=== PATIENT | male | born 1940 | race Caucasian/White ===

== ENCOUNTER 2021-05-20 16:05 | Inpatient (IN) | payer MEDICARE, OTHER ==
[~2021-05-20] VITALS: Ht 177.8 cm; Wt 85.0 kg
--- NOTE | 2021-05-20 16:16 | ED GI ---
General Chief Complaint: Abdominal/GI Problems Stated Complaint: COLON BLOOD LOSS Source of Information: Patient, Caregiver Exam Limitations: No Limitations History of Present Illness Date Seen by Provider: May 20, 2021 Time Seen by Provider: 16:07 Initial Comments 80yoM with PMH of HTN, HLD, and glaucoma coming in due to dark stools for 1 week and now dark red stools x3 episodes today. He has had something similar happen 7 years ago when he had a colonoscopy and they were not exactly sure what the cause was but he did have some polyps at that time. Denies any history of liver disease and does not drink alcohol. Takes a baby aspirin daily and occasional ibuprofen as far as NSAIDs. Does not take any blood thinners. Other than the blood in his stools he has not been symptomatic including no lightheadedness, syncope, chest pain, shortness of breath, abdominal pain, nausea, vomiting, weakness, numbness, or any other concerns. Allergies and Home Medications Allergies Coded Allergies: No Known Drug Allergies (Unverified , 05/20/21) Patient Home Medication List Home Medication List Reviewed: Yes Review of Systems Review of Systems Constitutional: No chills, No fever EENTM: No Blurred Vision Respiratory: Denies Cough, Denies Shortness of Air Cardiovascular: Denies Chest Pain, Denies Lightheadedness, Denies Palpitations, Denies Syncope Gastrointestinal: Denies Abdominal Pain, Denies Nausea; Rectal Bleeding; Denies Vomiting Genitourinary: No Symptoms Reported Musculoskeletal: no symptoms reported Skin: no symptoms reported Psychiatric/Neurological: No Symptoms Reported Endocrine: No Symptoms Reported Hematologic/Lymphatic: No Symptoms Reported All Other Systems Reviewed Negative Unless Noted: Yes Past [id number]-Wrynzd Hx Patient Social History Tobacco Use?: No Substance use?: No Alcohol Use?: No Past Medical History Surgeries: Yes (hernia surgery and colonscopy) Physical Exam Vital Signs Vital Signs - First Documented 05/20/21 16:10 Temp 35.4 Pulse 80 Resp 18 B/P (MAP) 201/82 (121) Pulse Ox 98 O2 Delivery Room Air Capillary Refill : Height/Weight/BMI Height: '" Weight: lbs. oz. kg; BMI Method: General Appearance: WD/WN, no apparent distress HEENT: PERRL/EOMI, normal ENT inspection, pharynx normal Neck: non-tender, full range of motion, supple, normal inspection Respiratory: chest non-tender, lungs clear, normal breath sounds, no respiratory distress, no accessory muscle use Cardiovascular: regular rate, rhythm, no edema, no murmur Gastrointestinal: normal bowel sounds, non tender; No distended, No guarding, No rebound Rectal: hemorrhoids, other (Bloody stool) Extremities: normal range of motion, non-tender, normal inspection, no pedal edema, no calf tenderness, normal capillary refill Back: normal inspection, no CVA tenderness, no vertebral tenderness Neurologic/Psychiatric: no motor/sensory deficits, alert, normal mood/affect Skin: normal color, warm/dry Lymphatic: no adenopathy Progress/Results/Core Measures Results/Orders Lab Results Laboratory Tests Test 05/20/21 16:15 Range/Units White Blood Count 12.1 H 4.3-11.0 10^3/uL Red Blood Count 4.41 4.30-5.52 10^6/uL Hemoglobin 13.6 13.3-17.7 g/dL Hematocrit 40 40-54 % Mean Corpuscular Volume 91 80-99 fL Mean Corpuscular Hemoglobin 31 25-34 pg Mean Corpuscular Hemoglobin Concent 34 32-36 g/dL Red Cell Distribution Width 12.6 10.0-14.5 % Platelet Count 285 130-400 10^3/uL Mean Platelet Volume 10.9 9.0-12.2 fL Immature Granulocyte % (Auto) 1 % Neutrophils (%) (Auto) 73 42-75 % Lymphocytes (%) (Auto) 18 12-44 % Monocytes (%) (Auto) 7 0-12 % Eosinophils (%) (Auto) 1 0-10 % Basophils (%) (Auto) 1 0-10 % Neutrophils # (Auto) 8.9 H 1.8-7.8 X 10^3 Lymphocytes # (Auto) 2.1 1.0-4.0 X 10^3 Monocytes # (Auto) 0.8 0.0-1.0 X 10^3 Eosinophils # (Auto) 0.1 0.0-0.3 10^3/uL Basophils # (Auto) 0.1 0.0-0.1 10^3/uL Immature Granulocyte # (Auto) 0.1 0.0-0.1 10^3/uL Prothrombin Time 13.7 12.2-14.7 SEC INR Comment 1.0 0.8-1.4 Activated Partial Thromboplast Time 31 24-35 SEC My Orders Orders - ANJALI ALVAREZ MD Cbc With Automated Diff (05/20/21 16:24) Comprehensive Metabolic Panel (05/20/21 16:24) Protime With Inr (05/20/21 16:24) Partial Thromboplastin Time (05/20/21 16:24) Type And Screen (05/20/21 16:24) Ed Iv/Invasive Line Start (05/20/21 16:24) Pantoprazole Injection (Protonix Injecti (05/20/21 16:30) Medications Given in ED Current Medications Medications Dose Ordered Sig/Peterson Route Start Time Stop Time Status Last Admin Dose Admin Pantoprazole 40 mg ONCE ONCE IV 05/20/21 16:30 05/20/21 16:31 DC 05/20/21 16:32 40 MG Vital Signs/I&O 05/20/21 16:10 Temp 35.4 Pulse 80 Resp 18 B/P (MAP) 201/82 (121) Pulse Ox 98 O2 Delivery Room Air Progress Progress Note : Progress Note 80-year-old male with above history coming in due to concerns of a GI bleed. ABCs were intact and vitals are stable on presentation. He is actually hypertensive on initial vitals. Physical exam with bright red blood on rectal exam with hemorrhoid present but it is not the source of his bleeding. Initial hemoglobin 13.6. An IV was placed and he was given Protonix. No evidence of liver disease so held off on giving ceftriaxone. Higher suspicion that this is a lower GI bleed. I contacted Dr. FELTON who will be in consult with the patient and will see him for potential scope. I also contacted Dr. Grady who will be admitting the patient and she prefers under inpatient status to the cardiac stepdown unit. He will be made n.p.o. with maintenance fluids going. He is full code per the patient. Departure Impression Primary Impression: GI bleed Qualified Codes: K92.2 - Gastrointestinal hemorrhage, unspecified Disposition: 30 STILL A PATIENT Condition: Stable Admissions Decision to Admit Reason: Admit from ER (General) Decision to Admit/Date: May 20, 2021 Time/Decision to Admit Time: 16:45 Departure-Patient Inst. Referrals: ALEX CAICEDO MD (PCP/Family) Primary Care Physician ANJALI ALVAREZ MD May 20, 2021 16:16
[2021-05-20] MEDS ORDERED: PANTOPRAZOLE 40 MG (PROTONIX) VIAL IV ONE (16:30)
[2021-05-20 16:40] LABS: HEMATOCRIT 40 % (40-54); HEMOGLOBIN 13.6 g/dL (13.3-17.7); MEAN CORPUSCULAR HEMOGLOBIN 31 pg (25-34); MEAN CORPUSCULAR HGB CONC 34 g/dL (32-36); MEAN CORPUSCULAR VOLUME 91 fL (80-99); PLATELET COUNT 285 10^3/uL (130-400); WHITE BLOOD COUNT 12.1 10^3/uL (4.3-11.0)
[2021-05-20 16:41] LABS: BASOPHILS # (AUTO) 0.1 10^3/uL (0.0-0.1); BASOPHILS % (AUTO) 1 % (0-10); EOSINOPHILS # (AUTO) 0.1 10^3/uL (0.0-0.3); EOSINOPHILS % (AUTO) 1 % (0-10); LYMPHOCYTES # (AUTO) 2.1 X 10^3 (1.0-4.0); LYMPHOCYTES % (AUTO) 18 % (12-44); MEAN PLATELET VOLUME 10.9 fL (9.0-12.2); MONOCYTES # (AUTO) 0.8 X 10^3 (0.0-1.0); MONOCYTES % (AUTO) 7 % (0-12); NEUTROPHILS # (AUTO) 8.9 X 10^3 (1.8-7.8); NEUTROPHILS % (AUTO) 73 % (42-75)
[2021-05-20 16:44] LABS: PROTHROMBIN TIME PATIENT 13.7 SEC (12.2-14.7)
[2021-05-20 17:04] LABS: CARBON DIOXIDE 27 MMOL/L (21-32); CHLORIDE 99 MMOL/L (98-107); POTASSIUM 4.6 MMOL/L (3.6-5.0); SODIUM 136 MMOL/L (135-145)
[2021-05-20 17:05] LABS: ALANINE AMINOTRANSFERASE 41 U/L (0-55); ALBUMIN 4.7 GM/DL (3.2-4.5); ALKALINE PHOSPHATASE 104 U/L (40-136); BILIRUBIN,TOTAL 0.4 MG/DL (0.1-1.0); BUN/CREATININE RATIO 18; CALCIUM 9.6 MG/DL (8.5-10.1); CREATININE SERUM 1.18 MG/DL (0.60-1.30); GFR ESTIMATED 59; GLUCOSE 306 MG/DL (70-105)
[2021-05-20] MEDS ORDERED: CATHETER FLUSH 10 ML SYR IV PRN (20:00)
[2021-05-20] MEDS: D5 NS 1000 ML IV SOLUTION 1,000 ML IV SCH (20:07)
--- NOTE | 2021-05-20 20:35 | Tele-ICU Progress Note ---
Subjective Date Seen by a Provider: May 20, 2021 Time Seen by a Provider: 20:33 Subjective/Events-last exam GI bleed; stable hemodynamics./ ppi/ trend hb Sepsis Event Evaluation Height, Weight, BMI Height: '" Weight: lbs. oz. kg; 27.00 BMI Method: Exam Exam Patient acknowledged, consented, and participated in this virtual visit which was conducted using real time audio/video Vital Signs Date Time Temp Pulse Resp B/P (MAP) Pulse Ox O2 Delivery O2 Flow Rate FiO2 05/20/21 18:55 66 16 178/64 Room Air 05/20/21 16:10 35.4 80 18 201/82 (121) 98 Room Air Height & Weight Height: '" Weight: lbs. oz. kg; 27.00 BMI Method: General Appearance: No Apparent Distress Capillary Refill: Less Than 3 Seconds Gastrointestinal: normal bowel sounds, non tender; No distended, No guarding, No rebound Results Lab Laboratory Tests 05/20/21 16:15 Assessment/Plan Assessment/Plan GI bleed stable hb ppi gi ANTONIO Patton MD May 20, 2021 20:35
[2021-05-20 21:10] LABS: BASOPHILS # (AUTO) 0.1 10^3/uL (0.0-0.1); BASOPHILS % (AUTO) 1 % (0-10); EOSINOPHILS % (AUTO) 0 % (0-10); HEMATOCRIT 38 % (40-54); HEMOGLOBIN 12.8 g/dL (13.3-17.7); LYMPHOCYTES # (AUTO) 1.4 10^3/uL (1.0-4.0); LYMPHOCYTES % (AUTO) 11 % (12-44); MEAN CORPUSCULAR HEMOGLOBIN 31 pg (25-34); MEAN CORPUSCULAR HGB CONC 34 g/dL (32-36); MEAN CORPUSCULAR VOLUME 91 fL (80-99); MEAN PLATELET VOLUME 10.7 fL (9.0-12.2); MONOCYTES # (AUTO) 0.9 10^3/uL (0.0-1.0); MONOCYTES % (AUTO) 7 % (0-12); NEUTROPHILS # (AUTO) 10.2 10^3/uL (1.8-7.8); NEUTROPHILS % (AUTO) 81 % (42-75); PLATELET COUNT 239 10^3/uL (130-400); WHITE BLOOD COUNT 12.7 10^3/uL (4.3-11.0)
--- NOTE | 2021-05-20 22:19 | CONSULTATION REPORT ---
DATE OF SERVICE: ATTENDING PRIMARY CARE PHYSICIAN: Dr. Ang Rodríguez. ADMITTING PHYSICIAN: Dr. Fermin. HISTORY OF PRESENT ILLNESS: The patient is an 80-year-old male with history of hypertension and hyperlipidemia. He presented to [facility] with a 1-week history of dark red stools. This was initially mild; however, on admission, he states that he had three larger episodes. He reports that he had a similar occurrence approximately 7 years ago and underwent a colonoscopy and is not exactly sure what the results yielded; however, did remember having a few polyps, which were biopsied and found to be benign. He does take aspirin 81 mg daily. He does not report any classic symptoms of peptic ulcer disease or gastroesophageal reflux disease; however, he states that some foods do cause some mild reflux. He does not report any known family history of colon cancer. PAST MEDICAL HISTORY: Hypertension, hyperlipidemia, glaucoma. PAST SURGICAL HISTORY: Hernia repair. ALLERGIES: No known drug allergies. MEDICATIONS: Aspirin 81 mg daily. SOCIAL HISTORY: Negative smoke, negative alcohol. FAMILY HISTORY: Noncontributory. VITAL SIGNS: Temperature 35.4, blood pressure 139/85, pulse 70, respirations 20, pulse ox 96% on room air. REVIEW OF SYSTEMS: Well-nourished male currently in no acute distress. He is not experiencing any shortness of breath or difficulty breathing. No chest pain, palpitations, diaphoresis. No nausea, vomiting with mild reflux. He has been experiencing a 1-week history of dark maroon-colored stools. He does not report any abdominal pain. No fever, chills, no recent inadvertent weight loss. All other review of systems negative. PHYSICAL EXAMINATION: CHEST: Clear. Good breath sounds bilaterally. HEART: Regular, no murmurs. EXTREMITIES: No lower extremity edema, negative Homans sign. HEENT: No scleral icterus. NECK: No cervical lymphadenopathy. ABDOMEN: Soft, nontender, nondistended. No hernias. SKIN: Warm, dry. LABORATORY DATA: WBC 12.1, hemoglobin 13.5, hematocrit 40, platelets 285. BUN 21, creatinine 1.18. ASSESSMENT AND PLAN: An 80-year-old male with gastrointestinal bleeding encompassing dark maroon stools. This may indicate an upper GI source; however, also the possibility of a lower gastrointestinal source. Due to his symptomatology and unknown findings on previous colonoscopy, we will initially proceed with resuscitation as necessary and continued monitoring for continued gastrointestinal bleeding. On this admission, we will also likely schedule an EGD and colonoscopy. Job ID: [id number] DocumentID: [id number] Dictated Date: 05/20/2021 21:12:53 Microcomputer Support Specialist Date: 05/20/2021 22:19:08 Dictated By: HALEY FETLON MD
[2021-05-21 01:48] VITALS: BP 201/82
[2021-05-21] MEDS ORDERED: RT-ALBUTEROL SULF 2.5 MG/3 ML PRE-MIX VIAL INH PRN (02:00)
[2021-05-21 02:41] LABS: BASOPHILS # (AUTO) 0.1 10^3/uL (0.0-0.1); BASOPHILS % (AUTO) 1 % (0-10); EOSINOPHILS % (AUTO) 0 % (0-10); HEMATOCRIT 33 % (40-54); HEMOGLOBIN 11.5 g/dL (13.3-17.7); LYMPHOCYTES # (AUTO) 1.5 10^3/uL (1.0-4.0); LYMPHOCYTES % (AUTO) 12 % (12-44); MEAN CORPUSCULAR HEMOGLOBIN 31 pg (25-34); MEAN CORPUSCULAR HGB CONC 35 g/dL (32-36); MEAN CORPUSCULAR VOLUME 90 fL (80-99); MONOCYTES # (AUTO) 0.8 10^3/uL (0.0-1.0); MONOCYTES % (AUTO) 6 % (0-12); NEUTROPHILS # (AUTO) 10.3 10^3/uL (1.8-7.8); NEUTROPHILS % (AUTO) 81 % (42-75); PLATELET COUNT 226 10^3/uL (130-400); WHITE BLOOD COUNT 12.8 10^3/uL (4.3-11.0)
[2021-05-21 02:51] LABS: ALBUMIN 3.6 GM/DL (3.2-4.5); POTASSIUM 4.5 MMOL/L (3.6-5.0)
[2021-05-21 02:54] LABS: TOTAL PROTEIN 6.4 GM/DL (6.4-8.2)
[2021-05-21 02:55] LABS: BILIRUBIN,TOTAL 0.7 MG/DL (0.1-1.0)
[2021-05-21 02:57] LABS: CREATININE SERUM 1.17 MG/DL (0.60-1.30)
[2021-05-21] MEDS: PANTOPRAZOLE 40 MG (PROTONIX) VIAL IV SCH (08:11)
[2021-05-21 08:29] LABS: BASOPHILS # (AUTO) 0.1 10^3/uL (0.0-0.1); BASOPHILS % (AUTO) 0 % (0-10); EOSINOPHILS % (AUTO) 0 % (0-10); HEMATOCRIT 31 % (40-54); HEMOGLOBIN 10.8 g/dL (13.3-17.7); LYMPHOCYTES # (AUTO) 1.4 10^3/uL (1.0-4.0); LYMPHOCYTES % (AUTO) 9 % (12-44); MEAN CORPUSCULAR HEMOGLOBIN 31 pg (25-34); MEAN CORPUSCULAR HGB CONC 34 g/dL (32-36); MEAN CORPUSCULAR VOLUME 91 fL (80-99); MEAN PLATELET VOLUME 10.8 fL (9.0-12.2); MONOCYTES # (AUTO) 0.9 10^3/uL (0.0-1.0); MONOCYTES % (AUTO) 6 % (0-12); NEUTROPHILS # (AUTO) 12.3 10^3/uL (1.8-7.8); NEUTROPHILS % (AUTO) 84 % (42-75); PLATELET COUNT 232 10^3/uL (130-400); WHITE BLOOD COUNT 14.7 10^3/uL (4.3-11.0)
[2021-05-21 08:50] LABS: BAND NEUTROPHILS 0 %; BASOPHILS % (MANUAL) 0 %; EOSINOPHILS % (MANUAL) 0 %; LYMPHOCYTES % (MANUAL) 9 %; MONOCYTES % (MANUAL) 5 %; NEUTROPHILS % (MANUAL) 86 %; RBC MORPH NORMAL
[2021-05-21] MEDS: D5 NS 1000 ML IV SOLUTION 1,000 ML IV SCH (09:29)
[2021-05-21] MEDS ORDERED: TIMO5DRO5 OS (11:44)
[2021-05-21] MEDS ORDERED: BIMA2.5D4 OS (11:44)
[2021-05-21] MEDS ORDERED: IBUP1TAB14 PO (11:44)
[2021-05-21] MEDS ORDERED: SIMV10TA26 PO (11:44)
[2021-05-21] MEDS ORDERED: CINN500C2 PO (11:44)
[2021-05-21] MEDS ORDERED: ASPI-1238 PO (11:44)
[2021-05-21] MEDS ORDERED: AMLO-250 PO (11:44)
[2021-05-21] MEDS ORDERED: LISI20TA26 PO (11:44)
[2021-05-21] MEDS ORDERED: ALPR0.5T7 PO (11:44)
[2021-05-21] MEDS ORDERED: FISH1CAP15 PO (11:44)
[2021-05-21] MEDS ORDERED: GABA-486 PO (11:44)
--- NOTE | 2021-05-21 12:55 | History & Physical ---
HPI History of Present Illness: 80 yo M that presented to ER with bright red stools x 2 days. Patient states that he had dark stools about 1 week ago and now having blood in stools. States that he had similar problem about 7 years ago and had a colonoscopy at that time with benign polyps removed. Denies any pain. States that he has been having some fatigue and shortness of breath. Denies any palpitations or chest pain. Source: patient Exam Limitations: no limitations Date seen by provider: May 21, 2021 Time Seen by Provider: 09:45 Attending Physician Gabby Grady MD PCP Alex Caicedo MD Consult Date of Admission May 20, 2021 at 19:34 Home Medications Home Medications Reviewed patient Home Medication Reconciliation performed by pharmacy medication reconciliations library media technician and/or nursing. Patients Allergies have been reviewed. Allergies Coded Allergies: No Known Drug Allergies (Unverified , 05/20/21) [id number]-[id number] Hx Patient Social History Smoking Status: Never a Smoker Alcohol Use?: No Have you traveled recently?: No Immunizations Up To Date Date of Influenza Vaccine: Apr 24, 2021 Past Medical History HTN HLD Family Medical History Significant Family History: No Pertinent Family Hx Review of Systems ([facility]) Constitutional: No chills, No dizziness, No fever; malaise EENTM: no symptoms reported; No mouth pain, No nose congestion, No nose pain, No throat pain Respiratory: No cough; dyspnea on exertion; No orthopnea; short of breath Cardiovascular: no symptoms reported; No chest pain, No edema, No palpitations Gastrointestinal: No abdominal pain, No constipation, No diarrhea; melena, other (BRBRR) Genitourinary: no symptoms reported; No dysuria, No frequency, No hematuria Musculoskeletal: no symptoms reported; No back pain, No joint pain, No muscle pain Skin: no symptoms reported; No lesions, No rash Psychiatric/Neurological: No Symptoms Reported Reviewed Test Results Reviewed Test Results Lab Laboratory Tests Test 05/20/21 20:59 05/20/21 21:41 05/21/21 02:18 05/21/21 08:21 Range/Units White Blood Count 12.7 H 12.8 H 14.7 H 4.3-11.0 10^3/uL Red Blood Count 4.14 L 3.66 L 3.47 L 4.30-5.52 10^6/uL Hemoglobin 12.8 L 11.5 L 10.8 L 13.3-17.7 g/dL Hematocrit 38 L 33 L 31 L 40-54 % Mean Corpuscular Volume 91 90 91 80-99 fL Mean Corpuscular Hemoglobin 31 31 31 25-34 pg Mean Corpuscular Hemoglobin Concent 34 35 34 32-36 g/dL Red Cell Distribution Width 12.4 12.5 12.6 10.0-14.5 % Platelet Count 239 226 232 130-400 10^3/uL Mean Platelet Volume 10.7 11.0 10.8 9.0-12.2 fL Immature Granulocyte % (Auto) 0 1 0 % Neutrophils (%) (Auto) 81 H 81 H 84 H 42-75 % Lymphocytes (%) (Auto) 11 L 12 9 L 12-44 % Monocytes (%) (Auto) 7 6 6 0-12 % Eosinophils (%) (Auto) 0 0 0 0-10 % Basophils (%) (Auto) 1 1 0 0-10 % Neutrophils # (Auto) 10.2 H 10.3 H 12.3 H 1.8-7.8 10^3/uL Lymphocytes # (Auto) 1.4 1.5 1.4 1.0-4.0 10^3/uL Monocytes # (Auto) 0.9 0.8 0.9 0.0-1.0 10^3/uL Eosinophils # (Auto) 0.0 0.0 0.0 0.0-0.3 10^3/uL Basophils # (Auto) 0.1 0.1 0.1 0.0-0.1 10^3/uL Immature Granulocyte # (Auto) 0.0 0.1 0.1 0.0-0.1 10^3/uL Stool Occult Blood Immunoassay POSITIVE H NEGATIVE Sodium Level 136 135-145 MMOL/L Potassium Level 4.5 3.6-5.0 MMOL/L Chloride Level 104 98-107 MMOL/L Carbon Dioxide Level 21 21-32 MMOL/L Anion Gap 11 5-14 MMOL/L Blood Urea Nitrogen 19 H 7-18 MG/DL Creatinine 1.17 0.60-1.30 MG/DL Estimat Glomerular Filtration Rate 60 BUN/Creatinine Ratio 16 Glucose Level 275 H 70-105 MG/DL Calcium Level 9.0 8.5-10.1 MG/DL Corrected Calcium 9.3 8.5-10.1 MG/DL Total Bilirubin 0.7 0.1-1.0 MG/DL Aspartate Amino Transf (AST/SGOT) 38 H 5-34 U/L Alanine Aminotransferase (ALT/SGPT) 36 0-55 U/L Alkaline Phosphatase 61 40-136 U/L Total Protein 6.4 6.4-8.2 GM/DL Albumin 3.6 3.2-4.5 GM/DL Neutrophils % (Manual) 86 % Lymphocytes % (Manual) 9 % Monocytes % (Manual) 5 % Eosinophils % (Manual) 0 % Basophils % (Manual) 0 % Band Neutrophils 0 % Blood Morphology Comment NORMAL Test 05/21/21 14:17 Range/Units White Blood Count 14.6 H 4.3-11.0 10^3/uL Red Blood Count 3.65 L 4.30-5.52 10^6/uL Hemoglobin 11.5 L 13.3-17.7 g/dL Hematocrit 33 L 40-54 % Mean Corpuscular Volume 91 80-99 fL Mean Corpuscular Hemoglobin 32 25-34 pg Mean Corpuscular Hemoglobin Concent 35 32-36 g/dL Red Cell Distribution Width 12.8 10.0-14.5 % Platelet Count 252 130-400 10^3/uL Mean Platelet Volume 10.8 9.0-12.2 fL Immature Granulocyte % (Auto) 0 % Neutrophils (%) (Auto) 80 H 42-75 % Lymphocytes (%) (Auto) 11 L 12-44 % Monocytes (%) (Auto) 8 0-12 % Eosinophils (%) (Auto) 0 0-10 % Basophils (%) (Auto) 0 0-10 % Neutrophils # (Auto) 11.7 H 1.8-7.8 10^3/uL Lymphocytes # (Auto) 1.6 1.0-4.0 10^3/uL Monocytes # (Auto) 1.2 H 0.0-1.0 10^3/uL Eosinophils # (Auto) 0.0 0.0-0.3 10^3/uL Basophils # (Auto) 0.1 0.0-0.1 10^3/uL Immature Granulocyte # (Auto) 0.1 0.0-0.1 10^3/uL Physical Exam-([facility]) Physical Exam Vital Signs VS - Last 72 Hours, by Label 05/20/21 05/20/21 05/20/21 05/20/21 16:10 18:55 19:36 19:36 Temp 35.4 36.2 Pulse 80 66 70 Resp 18 16 20 B/P (MAP) 201/82 (121) 178/64 139/85 Pulse Ox 98 96 96 O2 Delivery Room Air Room Air Room Air Room Air 05/20/21 05/20/21 05/20/21 05/20/21 19:53 20:00 20:15 20:30 Pulse 70 66 70 64 Resp 15 15 15 B/P (MAP) 158/80 166/86 161/77 Pulse Ox 96 94 97 O2 Delivery Room Air Room Air Room Air 05/20/21 05/20/21 05/20/21 05/21/21 21:00 22:00 23:30 00:00 Temp 36.6 Pulse 63 65 Resp 12 12 B/P (MAP) 167/75 151/76 Pulse Ox 98 97 94 O2 Delivery Room Air Room Air Room Air Room Air 05/21/21 05/21/21 05/21/21 05/21/21 00:00 01:00 01:48 04:00 Temp 35.4 Pulse 67 84 80 89 Resp 20 13 B/P (MAP) 140/62 139/67 Pulse Ox 95 98 92 O2 Delivery Room Air Room Air FiO2 21 05/21/21 05/21/21 05/21/21 05/21/21 04:10 04:12 07:00 08:00 Temp 37.0 Pulse 65 76 Resp 19 B/P (MAP) 146/74 Pulse Ox 94 94 O2 Delivery Room Air Room Air 05/21/21 05/21/21 05/21/21 05/21/21 08:19 08:34 11:31 11:54 Temp 37.2 Pulse Ox 97 97 O2 Delivery Room Air Room Air Room Air 05/21/21 05/21/21 05/21/21 11:59 13:00 15:53 Temp 37.0 36.2 Pulse 77 76 82 Resp 16 18 B/P (MAP) 148/70 166/76 Pulse Ox 97 97 O2 Delivery Room Air Room Air Capillary Refill : Less Than 3 Seconds General Appearance: WD/WN, no apparent distress, thin HEENT: PERRL/EOMI Neck: non-tender, full range of motion, supple Respiratory: chest non-tender, lungs clear, normal breath sounds, no respiratory distress, no accessory muscle use Cardiovascular: normal peripheral pulses, regular rate, rhythm, no edema, no murmur Gastrointestinal: normal bowel sounds, non tender, soft; No guarding, No rebound, No tenderness Back: no CVA tenderness, no vertebral tenderness Extremities: normal range of motion, non-tender, normal inspection, no pedal edema, no calf tenderness, normal capillary refill Neurologic/Psychiatric: exercise equipment repair technician II-XII nml as tested, no motor/sensory deficits, alert, normal mood/affect, oriented x 3 Skin: normal color, warm/dry Lymphatic: no adenopathy Assessment/Plan Assessment/Plan Admission Status: Inpatient Order (span 2 midnights) Reason for Inpatient Admission: high risk of decompensation due to age and bloody stools. Need close monitoring and colonoscopy (1) GI bleed Status: Acute Assessment & Plan: - HDS, Trending hgb, consult Dr Rodney with general surgery for EGD/Colonoscopy, will transfer to Med/Surg as patient is stable Qualifiers: Qualified Codes: K92.2 - Gastrointestinal hemorrhage, unspecified (2) HTN (hypertension) Status: Chronic Assessment & Plan: - Holding meds due to GI bleed Qualifiers: Qualified Codes: I10 - Essential (primary) hypertension (3) HLD (hyperlipidemia) Status: Chronic Assessment & Plan: - Will restart statin at d/c Qualifiers: Qualified Codes: E78.5 - Hyperlipidemia, unspecified Copy Copies To 1: ALEX CAICEDO MD, HOLLY R MD May 21, 2021 12:55
[2021-05-21 14:24] LABS: BASOPHILS # (AUTO) 0.1 10^3/uL (0.0-0.1); BASOPHILS % (AUTO) 0 % (0-10); EOSINOPHILS % (AUTO) 0 % (0-10); HEMATOCRIT 33 % (40-54); HEMOGLOBIN 11.5 g/dL (13.3-17.7); LYMPHOCYTES # (AUTO) 1.6 10^3/uL (1.0-4.0); LYMPHOCYTES % (AUTO) 11 % (12-44); MEAN CORPUSCULAR HEMOGLOBIN 32 pg (25-34); MEAN CORPUSCULAR HGB CONC 35 g/dL (32-36); MEAN CORPUSCULAR VOLUME 91 fL (80-99); MEAN PLATELET VOLUME 10.8 fL (9.0-12.2); MONOCYTES # (AUTO) 1.2 10^3/uL (0.0-1.0); MONOCYTES % (AUTO) 8 % (0-12); NEUTROPHILS # (AUTO) 11.7 10^3/uL (1.8-7.8); NEUTROPHILS % (AUTO) 80 % (42-75); PLATELET COUNT 252 10^3/uL (130-400); WHITE BLOOD COUNT 14.6 10^3/uL (4.3-11.0)
[2021-05-21] MEDS: MAGNESIUM CITRATE 300 ML BTL PO SCH ×2 (15:30→20:57)
--- NOTE | 2021-05-21 18:24 | Progress Note-Pre Operative ---
Pre-Operative Progress Note H&P Reviewed The H&P was reviewed, patient examined and no changes noted. Date Seen by Provider: May 21, 2021 Time Seen by Provider: 18:00 Date H&P Reviewed: May 21, 2021 Time H&P Reviewed: 18:00 Pre-Operative Diagnosis: GI bleed, anemia HALEY FELTON MD May 21, 2021 18:24
[2021-05-21] MEDS: inSUlin ASPART (NovoLOG) 1 UNIT/0.01 ML (CHARGE PER UNIT) SC SCH (22:07)
[2021-05-21] MEDS: NS IV 1000 ML 1,000 ML IV SCH (23:58)
[2021-05-22] VITALS (11 sets, daily range): BP systolic 113–172; BP diastolic 54–81
[2021-05-22 05:34] LABS: BASOPHILS % (AUTO) 0 % (0-10); EOSINOPHILS % (AUTO) 0 % (0-10); HEMATOCRIT 31 % (40-54); HEMOGLOBIN 10.5 g/dL (13.3-17.7); LYMPHOCYTES # (AUTO) 2.1 10^3/uL (1.0-4.0); LYMPHOCYTES % (AUTO) 18 % (12-44); MEAN CORPUSCULAR HEMOGLOBIN 31 pg (25-34); MEAN CORPUSCULAR HGB CONC 34 g/dL (32-36); MEAN CORPUSCULAR VOLUME 92 fL (80-99); MEAN PLATELET VOLUME 10.9 fL (9.0-12.2); MONOCYTES # (AUTO) 1.3 10^3/uL (0.0-1.0); MONOCYTES % (AUTO) 11 % (0-12); NEUTROPHILS # (AUTO) 8.5 10^3/uL (1.8-7.8); NEUTROPHILS % (AUTO) 71 % (42-75); PLATELET COUNT 227 10^3/uL (130-400); WHITE BLOOD COUNT 12.1 10^3/uL (4.3-11.0)
[2021-05-22 05:45] LABS: POTASSIUM 3.9 MMOL/L (3.6-5.0)
[2021-05-22 05:46] LABS: CALCIUM 8.5 MG/DL (8.5-10.1)
[2021-05-22 05:50] LABS: CREATININE SERUM 1.04 MG/DL (0.60-1.30)
[2021-05-22] MEDS: inSUlin ASPART (NovoLOG) 1 UNIT/0.01 ML (CHARGE PER UNIT) SC SCH ×4 (05:56→21:46)
[2021-05-22] MEDS: PANTOPRAZOLE 40 MG (PROTONIX) VIAL IV SCH (08:20)
--- NOTE | 2021-05-22 12:11 | Progress Note ---
Subjective Subjective/Events-last exam Patient states that he is doing ok this AM. Still passing blood with stools. States that it was a brownish color but now again this AM is bright red. Currently NPO for scopes. Denies any pain. No ON events Review of Systems General: Fatigue Pulmonary: No Dyspnea, No Cough Cardiovascular: No: Chest Pain, Palpitations, Edema Gastrointestinal: Melena, Hematochezia; No: Nausea, Vomiting, Abdominal Pain Neurological: Weakness Objective Exam Last Set of Vital Signs Vital Signs Date Time Temp Pulse Resp B/P (MAP) Pulse Ox O2 Delivery O2 Flow Rate FiO2 05/22/21 11:32 36.9 73 20 165/72 96 Room Air 05/21/21 01:48 21 Capillary Refill : Less Than 3 Seconds I&O Intake and Output 05/22/21 00:00 Intake Total 400 ml Output Total 450 ml Balance -50 ml Intake Oral 400 ml Output Urine Total 450 ml # Voids 3 # Bowel Movements 4 General: Alert, Oriented X3, Cooperative, No Acute Distress Lungs: Clear to Auscultation, Normal Air Movement Heart: Regular Rate, No Murmurs Abdomen: Normal Bowel Sounds, Soft, No Tenderness, No Masses Extremities: No Edema, No Tenderness/Swelling Results/Procedures Lab Laboratory Tests 05/21/21 14:17: White Blood Count 14.6H, Red Blood Count 3.65L, Hemoglobin 11.5L, Hematocrit 33L , Mean Corpuscular Volume 91, Mean Corpuscular Hemoglobin 32, Mean Corpuscular Hemoglobin Concent 35, Red Cell Distribution Width 12.8, Platelet Count 252, Mean Platelet Volume 10.8, Immature Granulocyte % (Auto) 0, Neutrophils (%) (Auto) 80H, Lymphocytes (%) (Auto) 11L, Monocytes (%) (Auto) 8, Eosinophils (%) (Auto) 0, Basophils (%) (Auto) 0, Neutrophils # (Auto) 11.7H, Lymphocytes # (Auto) 1.6, Monocytes # (Auto) 1.2H, Eosinophils # (Auto) 0.0, Basophils # (Auto) 0.1, Immature Granulocyte # (Auto) 0.1 05/21/21 20:57: Glucometer 288H 05/22/21 04:56: White Blood Count 12.1H, Red Blood Count 3.41L, Hemoglobin 10.5L, Hematocrit 31L , Mean Corpuscular Volume 92, Mean Corpuscular Hemoglobin 31, Mean Corpuscular Hemoglobin Concent 34, Red Cell Distribution Width 12.8, Platelet Count 227, Mean Platelet Volume 10.9, Immature Granulocyte % (Auto) 0, Neutrophils (%) (Auto) 71, Lymphocytes (%) (Auto) 18, Monocytes (%) (Auto) 11, Eosinophils (%) (Auto) 0, Basophils (%) (Auto) 0, Neutrophils # (Auto) 8.5H, Lymphocytes # (Auto) 2.1, Monocytes # (Auto) 1.3H, Eosinophils # (Auto) 0.0, Basophils # (Auto) 0.0, Immature Granulocyte # (Auto) 0.1, Sodium Level 138, Potassium Level 3.9, Chloride Level 105, Carbon Dioxide Level 22, Anion Gap 11, Blood Urea Nitrogen 13, Creatinine 1.04, Estimat Glomerular Filtration Rate 69, BUN/Creatinine Ratio 13, Glucose Level 207H, Calcium Level 8.5 05/22/21 08:40: SARS-CoV-2 RNA (RT-PCR) Not Detected 05/22/21 11:35: Glucometer 216H Microbiology 05/20/21 MRSA Screen - Final, Complete MRSA not isolated Assessment/Plan Assessment/Plan (1) GI bleed Status: Acute Assessment & Plan: - HDS, Trending hgb, consult Dr Rodney with general surgery for EGD/Colonoscopy, will transfer to Med/Surg as patient is stable 05/22: Plan for Scope today, still having blood in stools, HDS Qualifiers: Qualified Codes: K92.2 - Gastrointestinal hemorrhage, unspecified (2) HTN (hypertension) Status: Chronic Assessment & Plan: - Holding meds due to GI bleed Qualifiers: Qualified Codes: I10 - Essential (primary) hypertension (3) HLD (hyperlipidemia) Status: Chronic Assessment & Plan: - Will restart statin at d/c Qualifiers: Qualified Codes: E78.5 - Hyperlipidemia, unspecified FER BOSE MD May 22, 2021 12:11
[2021-05-22] MEDS ORDERED: NS IV 500 ML 500 ML IV PRN (14:00)
[2021-05-22] MEDS ORDERED: fentaNYL INJ 100 MCG/2 ML AMP IVP ONE (14:00)
[2021-05-22] MEDS ORDERED: NS IV 500 ML 500 ML ONE (14:00)
[2021-05-22] MEDS ORDERED: LIDOCAINE JELLY 2% 6 ML SYRINGE MM PRN (14:00)
[2021-05-22] MEDS ORDERED: MIDAZOLAM 5 MG/5 ML (VERSED) VIAL IV ONE (14:00)
[2021-05-22] MEDS ORDERED: MIDAZOLAM 5 MG/5 ML (VERSED) VIAL ONE (14:31)
[2021-05-22] MEDS ORDERED: fentaNYL INJ 100 MCG/2 ML AMP ONE (14:32)
[2021-05-22] MEDS ORDERED: HURRICAINE EXT TUBE (BENZOCAINE) ONE (14:33)
[2021-05-22] MEDS: HURRICAINE EXT TUBE (BENZOCAINE) XX PRN (14:43)
--- NOTE | 2021-05-22 21:20 | OPERATIVE REPORT ---
DATE OF SERVICE: 05/22/2021 ATTENDING PRIMARY CARE PHYSICIAN: Dr. Rodríguez. ADMITTING PHYSICIAN: Dr. Fermin. PREOPERATIVE DIAGNOSIS: Gastrointestinal bleeding with anemia. POSTOPERATIVE DIAGNOSES: Reflux esophagitis stage II, small to moderate size hiatal hernia 2.5 cm in size, moderate to severe gastritis more towards the stomach antrum with superficial erosions, no formal ulcerations. No bleeding. Mild chronic stage II external and internal hemorrhoids, [id number] sigmoid diverticulosis with old clotted maroon stools within the descending colon through the sigmoid colon as well as descending colon, no fresh red blood. The transverse and ascending colon as well as the cecum appeared normal with no blood. PROCEDURES PERFORMED: EGD with biopsy and colonoscopy. SURGEON: Haley Rodney MD. ANESTHESIA: Conscious sedation. ESTIMATED BLOOD LOSS: Minimal. FINDINGS: Reflux esophagitis stage II, small to moderate size hiatal hernia 2.5 cm in size, moderate to severe gastritis more towards the stomach antrum with superficial erosions, no formal ulcerations. No bleeding. Mild chronic stage II external and internal hemorrhoids, [id number] sigmoid diverticulosis with old clotted maroon stools within the descending colon through the sigmoid colon as well as descending colon, no fresh red blood. The transverse and ascending colon as well as the cecum appeared normal with no blood. DISPOSITION: The patient tolerated the procedure well. INDICATIONS FOR PROCEDURE: The patient is an 80-year-old male, who presented to [facility] with clots of blood per rectum. He states that he has had this before in the past. He has had a colonoscopy before in the past and does remember diverticulosis. He also does report that he does have a history of gastroesophageal reflux disease as well. He does not report any family history of colon cancer. DESCRIPTION OF PROCEDURE: The patient was brought to the endoscopy suite and laid in the left lateral decubitus position with the head slightly elevated. After adequate IV pain and sedative medications and conscious sedation anesthesia, the mouthpiece was applied. The endoscope was placed in the mouth, visualizing the pharynx and the hypopharyngeal region. Vocal cords, epiglottis and vallecula identified and appeared to be normal. The endoscope was then gently intubated, esophageal opening and esophagus insufflated. Endoscope was then advanced to the first, second and third portion of the esophagus. At the level of the GE junction, a reflux esophagitis stage II identified. No ulcers or strictures were identified in this region. The GE junction was also intrathoracic consistent with a hiatal hernia. The endoscope was then advanced into the stomach and the endoscope retroflexed, visualizing a small to moderate size hiatal hernia approximately 2.5 cm in size. There was a moderate to severe gastritis more focused towards the stomach antrum with some superficial erosions; however, no formal ulcerations, bleeding or any neoplasms identified. A biopsy was taken of the antrum to rule out H. pylori with visualization of good hemostasis. The endoscope was then advanced to the pylorus and the first and second portion of the duodenum, which appeared normal with no ulcerations or any active bleeding. The endoscope was then slowly withdrawn while taking a second look and suctioning of residual air with no additional findings. A digital rectal examination was performed. Mild chronic stage II external and internal hemorrhoids were identified, which were not actively edematous nor inflamed and no bleeding. Normal sphincter tone was felt and there were no palpable masses. Prostate gland was palpable and appeared normal. The endoscope was then intubated, the anus and rectum gently insufflated. The endoscope was then advanced through the valves of Gomez of the rectum with no polyps or any neoplasms identified. There was an old maroon clotted blood within the rectum and this did continue on through the sigmoid colon, where a significant sigmoid diverticulosis identified; however, no fresh red blood identified. This type of blood did continue on through the descending colon; however, there was no blood within the transverse colon. The endoscope was then advanced to the remainder of the transverse and ascending colon to the cecum, which appeared normal. No polyps or any neoplasms were identified. The endoscope was then slowly withdrawn while taking a second look and suctioning of residual air with no additional findings. The patient tolerated the procedure well. We feel that the likely source of his bleeding is the diverticular bleed and we will recommend conservative medical management with IV hydration and blood resuscitation as well as holding any anticoagulation for now. Long-term, we will recommend incorporation of a high-fiber diet with a fiber supplement, which would equal or exceed 30 grams daily as well as significant amounts of water to promote soft stools on a daily basis. We will continue to monitor his clinical status as well as hemoglobin. Job ID: [id number] DocumentID: [id number] Dictated Date: 05/22/2021 15:25:53 [employer] Date: 05/22/2021 21:20:19 Dictated By: HALEY RODNEY MD
[2021-05-23 05:53] LABS: BASOPHILS # (AUTO) 0.1 10^3/uL (0.0-0.1); BASOPHILS % (AUTO) 1 % (0-10); EOSINOPHILS % (AUTO) 0 % (0-10); HEMATOCRIT 29 % (40-54); HEMOGLOBIN 9.8 g/dL (13.3-17.7); LYMPHOCYTES # (AUTO) 1.9 10^3/uL (1.0-4.0); LYMPHOCYTES % (AUTO) 16 % (12-44); MEAN CORPUSCULAR HEMOGLOBIN 31 pg (25-34); MEAN CORPUSCULAR HGB CONC 34 g/dL (32-36); MEAN CORPUSCULAR VOLUME 92 fL (80-99); MEAN PLATELET VOLUME 10.9 fL (9.0-12.2); MONOCYTES # (AUTO) 1.2 10^3/uL (0.0-1.0); MONOCYTES % (AUTO) 10 % (0-12); NEUTROPHILS # (AUTO) 8.7 10^3/uL (1.8-7.8); NEUTROPHILS % (AUTO) 73 % (42-75); PLATELET COUNT 221 10^3/uL (130-400)
[2021-05-23] MEDS: NS IV 1000 ML 1,000 ML IV SCH ×3 (06:18→07:07)
[2021-05-23] MEDS: inSUlin ASPART (NovoLOG) 1 UNIT/0.01 ML (CHARGE PER UNIT) SC SCH ×2 (06:54→11:32)
[2021-05-23 07:00] LABS: ALBUMIN 3.5 GM/DL (3.2-4.5); POTASSIUM 4.1 MMOL/L (3.6-5.0)
[2021-05-23 07:02] LABS: CALCIUM 8.4 MG/DL (8.5-10.1)
[2021-05-23 07:03] LABS: TOTAL PROTEIN 6.2 GM/DL (6.4-8.2)
[2021-05-23 07:05] LABS: BILIRUBIN,TOTAL 0.6 MG/DL (0.1-1.0)
[2021-05-23 07:07] LABS: CREATININE SERUM 0.99 MG/DL (0.60-1.30)
[2021-05-23] MEDS: PANTOPRAZOLE 40 MG (PROTONIX) VIAL IV SCH (09:16)
--- NOTE | 2021-05-23 09:26 | Progress Note - Surgery ---
HUDSON MATIAS 05/23/21 0926: Subjective Date Seen by a Provider: May 23, 2021 Time Seen by a Provider: 09:30 Subjective/Events-last exam Patient resting comfortably in bed this AM. He denies any problems or complaints since his EGD and colonoscopy yesterday. He has not had a BM since his colonoscopy prep. He has no abdominal pain. He has no hemoptysis. Review of Systems General: No Chills, No Night Sweats HEENT: No Head Aches, No Visual Changes Pulmonary: No Cough, No Pleuritic Chest Pain Cardiovascular: No: Chest Pain, Palpitations Gastrointestinal: No: Nausea, Vomiting, Abdominal Pain Genitourinary: No Dysuria, No Hematuria Musculoskeletal: No: neck pain, back pain Neurological: No: Incoordination, Confusion Objective Exam Vital Signs Date Time Temp Pulse Resp B/P (MAP) Pulse Ox O2 Delivery O2 Flow Rate FiO2 05/23/21 08:00 36.3 71 16 156/75 96 Room Air 05/23/21 07:00 72 05/23/21 04:00 37.3 81 20 152/71 96 Room Air 05/23/21 01:00 70 05/22/21 23:48 37.4 78 20 171/74 95 Room Air 05/22/21 21:00 Room Air 05/22/21 20:05 36.5 86 18 156/72 95 Room Air 05/22/21 19:00 80 05/22/21 18:46 Room Air 05/22/21 15:57 35.9 78 18 140/67 95 Room Air 05/22/21 15:30 81 16 100 Room Air 05/22/21 15:25 64 20 100 6 05/22/21 15:20 66 20 100 OxyMask 6 05/22/21 15:15 80 20 100 OxyMask 6 05/22/21 15:10 72 20 100 6 05/22/21 15:05 77 20 100 OxyMask 6 05/22/21 15:00 77 16 100 OxyMask 6 05/22/21 14:55 70 20 100 OxyMask 6 05/22/21 14:50 66 20 100 OxyMask 6 05/22/21 14:45 65 20 98 OxyMask 6 05/22/21 14:41 78 16 97 Room Air 05/22/21 12:41 67 05/22/21 12:30 124/68 05/22/21 12:10 124/68 05/22/21 11:32 36.9 73 20 165/72 96 Room Air I & O 05/23/21 07:00 Intake Total 890 ml Balance 890 ml Capillary Refill : Less Than 3 Seconds General Appearance: No Apparent Distress HEENT: PERRL/EOMI; No Scleral Icterus (L), No Scleral Icterus (R) Neck: Full Range of Motion, Normal Inspection, Non Tender, Supple Respiratory: Chest Non Tender, Lungs Clear, Normal Breath Sounds, No Accessory Muscle Use, No Respiratory Distress Cardiovascular: Regular Rate, Rhythm, Normal Peripheral Pulses Peripheral Pulses: 2+ Radial Pulses (R), 2+ Radial Pulses (L) Gastrointestinal: non tender, soft, no organomegaly, no pulsatile mass; No guarding, No rebound, No tenderness Extremity: Normal Range of Motion, Non Tender, No Calf Tenderness, No Pedal Edema Neurologic/Psychiatric: Alert, Oriented x3, No Motor/Sensory Deficits Skin: Normal Color, Warm/Dry Lymphatic: No Adenopathy (cervical ) Results Lab Laboratory Tests 05/22/21 11:35: Glucometer 216H 05/22/21 15:50: Glucometer 170H 05/22/21 20:02: Glucometer 229H 05/23/21 05:23: White Blood Count 12.0H, Red Blood Count 3.15L, Hemoglobin 9.8L, Hematocrit 29L, Mean Corpuscular Volume 92, Mean Corpuscular Hemoglobin 31, Mean Corpuscular Hemoglobin Concent 34, Red Cell Distribution Width 12.9, Platelet Count 221, Mean Platelet Volume 10.9, Immature Granulocyte % (Auto) 1, Neutrophils (%) (Auto) 73, Lymphocytes (%) (Auto) 16, Monocytes (%) (Auto) 10, Eosinophils (%) (Auto) 0, Basophils (%) (Auto) 1, Neutrophils # (Auto) 8.7H, Lymphocytes # (Auto) 1.9, Monocytes # (Auto) 1.2H, Eosinophils # (Auto) 0.0, Basophils # (Auto) 0.1, Immature Granulocyte # (Auto) 0.1, Sodium Level 136, Potassium Level 4.1, Chloride Level 106, Carbon Dioxide Level 20L, Anion Gap 10, Blood Urea Nitrogen 12, Creatinine 0.99, Estimat Glomerular Filtration Rate 73, BUN/Creatinine Ratio 12, Glucose Level 201H, Calcium Level 8.4L, Corrected Calcium 8.8, Total Bilirubin 0.6, Aspartate Amino Transf (AST/SGOT) 31, Alanine Aminotransferase (ALT/SGPT) 22, Alkaline Phosphatase 61, Total Protein 6.2L, Albumin 3.5 05/23/21 06:51: Glucometer 181H Microbiology 05/20/21 MRSA Screen - Final, Complete MRSA not isolated Assessment/Plan Assessment/Plan Assessment/Plan hematochezia likely secondary to diverticulosis Hypertension hyperlipidemia glaucoma. Patient's hematochezia likely secondary to diverticulosis. Will monitor hemoglobin status throughout hospital stay. All questions answered at this time. CLIF MELGAR DO 05/23/21 1138: Subjective Time Seen by a Provider: 10:01 Subjective/Events-last exam Pt seen and examined, denies abdominal pain and is asking if he could go home. Review of Systems General: No Chills, No Night Sweats HEENT: No Head Aches, No Visual Changes Pulmonary: No Cough Cardiovascular: No: Chest Pain, Palpitations Gastrointestinal: No: Nausea, Vomiting, Abdominal Pain Objective Exam General Appearance: No Apparent Distress HEENT: PERRL/EOMI Respiratory: Lungs Clear, Normal Breath Sounds, No Accessory Muscle Use, No Respiratory Distress Cardiovascular: Regular Rate, Rhythm, Normal Peripheral Pulses Gastrointestinal: non tender, soft, no organomegaly; No guarding, No rebound, No tenderness Assessment/Plan Assessment/Plan Assessment/Plan Hematochezia likely secondary to bleeding diverticula Hypertension hyperlipidemia glaucoma. Patient's hematochezia likely secondary to diverticulosis. Will monitor hemoglobin status throughout hospital stay. All questions answered at this time. Supervisory-Addendum Brief Verification & Attestation Participated in pt care: history, MDM, physical Personally performed: exam, history, MDM, supervision of care Care discussed with: Medical Student Procedures: n/a Verification and Attestation of Medical Student E/M Service A medical student performed and documented this service. I then reviewed and verified all information documented by the medical student and made modifications to such information, when appropriate. I personally performed a physical exam, medical decision making and then discussed any differences between the notes and made revisions as necessary to create one note. Clif Melgar , 05/23/21 , 11:38 HUDSON MATIAS May 23, 2021 09:26 CLIF MELGAR DO May 23, 2021 11:38
[2021-05-23] MEDS ORDERED: PANT40TA2 PO (11:35)
--- NOTE | 2021-05-23 11:36 | Discharge Summary ---
Discharge Summary Hospital Course Was the Problem List Reviewed?: Yes Problems/Dx: (1) Diverticular hemorrhage Hospital Course Date of Admission: May 20, 2021 at 19:34 Admission Diagnosis : Family Physician/Provider: Ang Rodríguez MD Date of Discharge: 05/23/21 Discharge Diagnosis: GI bleed presumed diverticular bleed Hospital Course: Patient had a standard hospital course after he was admitted for GI bleed and underwent close monitoring along with EGD and colonoscopy and it was presumed the bleed was from a diverticular bleed that resolved spontaneously. Patient did not require any transfusion. He was deemed stable for discharge. Labs and Pending Lab Test: Laboratory Tests 05/22/21 15:50: Glucometer 170H 05/22/21 20:02: Glucometer 229H 05/23/21 05:23: White Blood Count 12.0H, Red Blood Count 3.15L, Hemoglobin 9.8L, Hematocrit 29L, Mean Corpuscular Volume 92, Mean Corpuscular Hemoglobin 31, Mean Corpuscular Hemoglobin Concent 34, Red Cell Distribution Width 12.9, Platelet Count 221, Mean Platelet Volume 10.9, Immature Granulocyte % (Auto) 1, Neutrophils (%) (Auto) 73, Lymphocytes (%) (Auto) 16, Monocytes (%) (Auto) 10, Eosinophils (%) (Auto) 0, Basophils (%) (Auto) 1, Neutrophils # (Auto) 8.7H, Lymphocytes # (Auto) 1.9, Monocytes # (Auto) 1.2H, Eosinophils # (Auto) 0.0, Basophils # (Auto) 0.1, Immature Granulocyte # (Auto) 0.1, Sodium Level 136, Potassium Level 4.1, Chloride Level 106, Carbon Dioxide Level 20L, Anion Gap 10, Blood Urea Nitrogen 12, Creatinine 0.99, Estimat Glomerular Filtration Rate 73, BUN/Creatinine Ratio 12, Glucose Level 201H, Calcium Level 8.4L, Corrected Calcium 8.8, Iron Level [Pending], Total Bilirubin 0.6, Aspartate Amino Transf (AST/SGOT) 31, Alanine Aminotransferase (ALT/SGPT) 22, Alkaline Phosphatase 61, Total Protein 6.2L, Albumin 3.5 05/23/21 06:51: Glucometer 181H 05/23/21 11:04: Glucometer 251H Microbiology 10/27/21 MRSA Screen - Final, Complete MRSA not isolated Home Meds Active Protonix (Pantoprazole Sodium) 40 Mg Tablet.dr 40 Mg PO DAILY Reported Cinnamon (Cinnamon Bark) 500 Mg Capsule 1,000 Mg PO DAILY Advil Pm Caplet (Ibuprofen/Diphenhydramine Cit) 1 Each Tablet 1 Each PO HS Fish Oil 1,200 mg Fish Oil (Fish Oil/Dha/Epa) 1 Each Capsule 1 Each PO DAILY Lumigan (Bimatoprost) 2.5 Ml Drops 1 Drop OS HS Timolol Maleate 0.5% (Timolol Maleate) 5 Ml Drops 1 Drop OS DAILY Aspirin EC (Aspirin) 81 Mg Tablet.dr 81 Mg PO HS Lisinopril 20 Mg Tablet 20 Mg PO BID Simvastatin 10 Mg Tablet 10 Mg PO HS Gabapentin 100 Mg Capsule 100 Mg PO HS Alprazolam 0.5 Mg Tablet 0.25-0.5 Mg PO HS PRN Amlodipine Besylate 5 Mg Tablet 5 Mg PO HS Assessment/Pt Instructions [facility] in 1 week Discharge Planning: <30 minutes discharge planning Discharge Instructions Discharge Diet: No Restrictions Discharge Physical Examination Vital Signs Vital Signs Date Time Temp Pulse Resp B/P (MAP) Pulse Ox O2 Delivery O2 Flow Rate FiO2 05/23/21 08:00 36.3 71 16 156/75 96 Room Air 05/22/21 15:25 6 05/21/21 01:48 21 General Appearance: No Apparent Distress, WD/WN, Chronically ill Allergies: Coded Allergies: No Known Drug Allergies (Verified , 05/22/21) Discharge Summary Date of Admission May 20, 2021 at 19:34 Date of Discharge Discharge Date: May 23, 2021 SINGH JOSUE DO May 23, 2021 11:36
[2021-05-23 13:15] VITALS: BP 145/69
== END 2021-05-23 13:15 | disposition home or self-care (01) | DRG 379 ==
LOC: ER FS 16:06 → ICU 19:34 → 4TH 05-21 15:47 → ICU 05-21 16:22
PROVIDERS: ADMIT Internal Medicine; ATTEND Family Medicine
PROC: 0DJD8ZZ Inspection of Lower Intestinal Tract, Via Natural or Artificial Opening Endoscopic (ICD-10-PCS; principal; 2021-05-22 13:10)
PROC: 0DB78ZX Excision of Stomach, Pylorus, Via Natural or Artificial Opening Endoscopic, Diagnostic (ICD-10-PCS; 2021-05-22 13:10)
DX: K57.31 Diverticulosis of large intestine without perforation or abscess with bleeding (principal); I10 Essential (primary) hypertension; E78.5 Hyperlipidemia, unspecified; H40.9 Unspecified glaucoma; K21.00 Gastro-esophageal reflux disease with esophagitis, without bleeding; K44.9 Diaphragmatic hernia without obstruction or gangrene; K29.70 Gastritis, unspecified, without bleeding; K64.1 Second degree hemorrhoids; Z79.82 Long term (current) use of aspirin; Z79.899 Other long term (current) drug therapy; Z20.822 Contact with and (suspected) exposure to COVID-19; Z86.010 Personal history of colon polyps
CPT/HCPCS: 36415; 80048; 80053; 82274; 82947; 83540; 85007; 85025; 85027; 85610; 85730; 86850; 86900; 86901; 87081; 87636; 96374